=== PATIENT | male | born 1985 | race Caucasian/White ===

== ENCOUNTER 2022-07-23 10:06 | Outpatient (CLI) | payer BC, SELFPAY ==
[2022-07-23 19:03] LABS: Basophils Absolute Auto 0.1 K/mm3 (0.0-0.1); Basophils Percent Auto 0.8 % (0.2-1.2); Eosinophils Absolute Auto 0.1 K/mm3 (0-0.3); Eosinophils Percent Auto 1.5 % (0-4.4); Hematocrit 49.9 % (42.0-52.0); Hemoglobin 16.3 g/dL (14.0-18.0); Immature Granulocyte Absolute 0.03 K/mm3 (0.00-0.031); Immature Granulocyte Percent A 0.4 % (0-0.5); Lymphocytes Absolute Auto 1.82 K/mm3 (0.9-3.2); Lymphocytes Percent Auto 24.2 % (18.3-44.2); Mean Corpuscular HGB Conc 32.7 g/dl (32-36); Mean Corpuscular Hemoglobin 31.8 pg (26-34); Mean Corpuscular Volume 97.5 fl (80-100); Mean Platelet Volume 10.6 fl (7.4-10.4); Monocytes Absolute Auto 0.6 K/mm3 (0.1-0.6); Monocytes Percent Auto 8.1 % (2.6-8.5); Neutrophils Absolute Auto 4.9 K/mm3 (1.3-6.7); Platelet Count Result 316 k/mm3 (150-375); Red Blood Count 5.12 M/mm3 (4.6-6.20); Red Cell Distribution Width 12.2 % (11.5-14.5); White Blood Count 7.5 K/mm3 (4.5-10.0)
[2022-07-23 21:12] LABS: Alanine Aminotransferase 63 U/L (6-50); Albumin Level 4.8 g/dL (3.5-5.1); Alkaline Phosphatase 71 U/L (38-126); Anion Gap 9 mmol/L (8-16); Aspartate Amino Transferase 48 U/L (17-59); Bilirubin,Total 1.2 mg/dL (0.2-1.3); Blood Urea Nitrogen 9 mg/dL (9-20); Carbon Dioxide 27 mmol/L (22-30); Chloride 101 mmol/L (98-107); Cholesterol 232 mg/dL (0-200); Estimated Glomerular Filt Rate > 60; Glucose 80 mg/dL (65-110); HDL Direct 31 mg/dL; Potassium 4.3 mmol/L (3.4-5.0); Sodium 137 mmol/L (137-145); Triglycerides 255 mg/dL (<150)
[2022-07-23 21:22] LABS: LDL Cholesterol Direct 135 mg/dL
== END 2022-07-23 10:07 | disposition home or self-care (01) ==
PROVIDERS: PCP Family Medicine; Visit Provider Family Medicine
DX: Z00.00 Encounter for general adult medical examination without abnormal findings (principal)
CPT/HCPCS: 36415; 80053; 80061; 85025

== ENCOUNTER 2022-09-05 15:34 | Outpatient (CLI) | payer BC, SELFPAY ==
[2022-09-05 19:04] LABS: Alanine Aminotransferase 67 U/L (6-50); Albumin Level 4.8 g/dL (3.5-5.1); Alkaline Phosphatase 73 U/L (38-126); Aspartate Amino Transferase 39 U/L (17-59)
[2022-09-05 19:36] LABS: Hepatitis B Surface Antigen Negative (Negative)
[2022-09-05 19:43] LABS: HAV RESULT Negative (Negative); Hepatitis B Core IgM Result Negative (Negative)
[2022-09-05 19:54] LABS: Hepatitis C Virus Antibody Negative (Negative)
== END 2022-09-05 15:35 | disposition home or self-care (01) ==
LOC: ANHBWCLAB 15:35
PROVIDERS: PCP Family Medicine; Visit Provider Family Medicine
DX: R74.01 Elevation of levels of liver transaminase levels (principal)
CPT/HCPCS: 36415; 80074; 80076

== ENCOUNTER 2022-12-26 14:39 | Outpatient (CLI) | payer BC, SELFPAY ==
[2022-12-26 18:25] LABS: Alanine Aminotransferase 55 U/L (6-50); Albumin Level 4.4 g/dL (3.5-5.1); Alkaline Phosphatase 72 U/L (38-126); Aspartate Amino Transferase 57 U/L (17-59); Bilirubin,Total 1.2 mg/dL (0.2-1.3)
[2022-12-26 19:14] LABS: Hepatitis B Surface Antigen Negative (Negative)
[2022-12-26 19:20] LABS: HAV RESULT Negative (Negative); Hepatitis B Core IgM Result Negative (Negative)
[2022-12-26 19:31] LABS: Hepatitis C Virus Antibody Negative (Negative)
== END 2022-12-26 14:40 | disposition home or self-care (01) ==
LOC: ANHBWCLAB 14:40
PROVIDERS: PCP Family Medicine; Visit Provider Family Medicine
DX: R74.01 Elevation of levels of liver transaminase levels (principal)
CPT/HCPCS: 36415; 80074; 80076

== ENCOUNTER → 2023-07-09 15:40 | Outpatient (CLI) | payer OTHER, SELFPAY ==
--- NOTE | ~2023-07-09 | CT_ITS ---
EXAMINATION: CT sinus wo con DATE: 07/09/2023 15:58 INDICATION: TECHNIQUE: Computed tomography (CT) of the paranasal sinuses was performed without intravenous contra st. The dose-length product (DLP) was 280.89 mGy-cm. Iterative reconstruction was used. COMPARISON: None FINDINGS: The frontal sinuses are not pneumatized. There is mild leftward bowing of the anterior nasa l septum and mild rightward bowing of the posterior nasal septum. Air-fluid levels in the sphenoid an d right maxillary sinuses. Somewhat nodular appearing mucosal thickening in the ethmoid air cells, sp henoid, and bilateral maxillary sinuses, small retention cysts or polyps are not excluded. Bilateral ostiomeatal occlusion by mucosal thickening. Visualized soft tissues are unremarkable. IMPRESSION: Bilateral OMU occlusion. CT findings suggestive of acute right maxillary and sphenoid sinusitis. Mild septal bowing. Reviewed, dictated and finalized at location [facility]
== END ==
PROVIDERS: PCP Nurse Practitioner Family; Visit Provider Nurse Practitioner Family
DX: J34.2 Deviated nasal septum (principal)
CPT/HCPCS: 70486